=== PATIENT | female | born 1940 | race Caucasian/White ===

== ENCOUNTER 2017-05-06 07:49 | Emergency (ER) | payer MEDICARE, OTHER ==
[~2017-05-06] VITALS: Ht 170.2 cm; Wt 79.5 kg
[2017-05-06 07:49] VITALS: BP 120/63; PULSE 65; RESP 22; O2SAT 100
[2017-05-06] MEDS ORDERED: HYDR25TA4 PO (08:11)
[2017-05-06] MEDS ORDERED: MELO-259 PO (08:11)
[2017-05-06 08:39] LABS: BASOPHILS % (AUTO) 0.3 % (0-3); EOSINOPHILS % (AUTO) 0.3 % (0-5); MONOCYTES % (AUTO) 8.6 % (4-12); Mean Corpuscular Hemoglobin 23.5 pg (27.0-35.0); Mean Corpuscular Volume 74.1 fL (81-100); NEUTROPHILS % (AUTO) 81.1 % (40-74); Platelet Count 202 bil/L (150-400)
--- NOTE | 2017-05-06 08:41 | ED.REPORT ---
HPI-NVD Date of Service May 06, 2017 ED Provider: Conrad Carbajal MD History of Present Illness: OCC Pt is a 76 year old female with a history of arthritis, suspected diverticulitis and HTN who presents to the ED via EMS complaining of constipation onset 2 days ago. She c/o associated intermittent cramping abdominal pain, dizziness, nausea, shaking, weakness, malaise, and decreased appetite. She denies current abdominal pain and any other symptoms. Pt reports that she felt constipated 2 days ago, prompting her to consume prunes and milk of magnesia with mild relief. The pt reports that she took 3 tabs of Dulcolax at 03:00, resulting in a "large bowel movement" at 05:00 followed by her dizziness, nausea, shaking, and weakness. Nursing Notes Stated Complaint: DIARRHEA Chief Complaint: Female Abdominal Pain Nursing Notes Reviewed: Yes (StockLayouts reconciled) Allergies: Coded Allergies: Penicillins (Verified Allergy, Severe, 07/29/09) morphine (Verified Allergy, Severe, 07/29/09) Scheduled Ciprofloxacin (Cipro) 500 Mg Tablet 500 MG PO BID Hydrochlorothiazide (Hydrochlorothiazide) 25 Mg Tablet 25 MG PO DAILY Lactobacillus Acidophilus (Probiotic) 1 Each Capsule 1 EACH PO DAILY Meloxicam (Meloxicam) 7.5 Mg Tablet 7.5 MG PO DAILY Metronidazole (Metronidazole) 500 Mg Tablet 500 MG PO TID Scheduled PRN Hydrocodone-Acetaminophen 5-325 mg (Hydrocodone-Acetaminophen 5-325 mg) 1 Each Tablet 0.5-1 TABLET PO Q4H PRN PRN For Pain General Time Seen by MD: 08:37 Chief Complaint Other (Constipation) Hx Obtained From: Patient, EMS Arrived By: Ambulance Onset Occurred: 2 days ago Symptom Duration: Since onset Location: : Epigastric Quality: Cramping, Painful Radiation: : Does not radiate Severity: Current: Moderate Severity: Maximum: Moderate Recent Healthcare: No recent doctor visit, No recent hospitalization Similar Sx Previous: No Past Medical History Past Medical History Arthritis Suspected diverticulitis Reports: Hypertension Past Surgical History Right total hip replacement Reports: Cholecystectomy, Hysterectomy, Tonsillectomy Social History Alcohol Use: Denies alcohol use Drug Use: Denies drug use Other Social History: Good social support Ambulatory Status Independent Review of Systems Decreased appetite Constitutional: Reports: Malaise, Denies: Fever GI: Reports: Abdominal pain (cramping and painful), Constipation, Nausea Neurologic: Reports: Dizziness, Shaking, Weakness Complete sys rev & neg: except as marked. Physical Exam Initial Vital Signs Vital Signs (First) Date Time Temp Pulse Resp B/P Pulse Ox O2 Delivery O2 Flow Rate FiO2 05/06/17 07:49 36.7 65 22 120/63 100 Room Air Initial VS: Reviewed, Vital signs abnormal (orthotstatic for EMS) Head / Eyes: Atraumatic, Normocephalic Neck: Supple, Full range of motion Respiratory: Breath sounds normal, Clear to auscultation, No respiratory distress Cardiovascular: Regular rate & rhythm, Heart sounds normal, Intact distal pulses Extremities: Vascular intact, Neuro intact Skin: Warm, Dry, No cyanosis Neurologic: Alert, Oriented, Nonfocal Psychiatric: Mood/affect normal, Behavior normal General/Constitutional: Awake, Alert, Not toxic appearing Appears fatigued. Abdomen: Atraumatic, Soft, No guarding, No rebound Tenderness/Guarding/Rebound: Positive: Tender LLQ... (Moderate), Tender RLQ... (Mild) Interpretation & Diagnostics CT ABDOMEN AND PELVIS: IMPRESSION: 1. Sigmoid diverticulosis. There is mild thickening in the sigmoid colon suggesting mild diverticulitis. 2. There is a small hiatal hernia. There is mild eccentric thickening at the gastroesophageal junction. Double contrast esophagram or upper endoscopy suggested for further evaluation. 3. Moderate L3 compression fracture of indeterminate chronicity. Dictated by: Andrew Silva M.D. on 05/06/2017 at 11:59 Lab Results Interpretation Result Diagram: 05/06/17 0832 05/06/17 0832 Test 05/06/17 08:32 05/06/17 10:43 White Blood Count 7.7th/mm3 (3.8-10.1) Red Blood Count 4.98mil/mm3 (3.90-5.20) Hemoglobin 11.7g/dL (12.0-15.6) Hematocrit 36.9% (35.0-46.0) Mean Corpuscular Volume 74.1fL (81-100) Mean Corpuscular Hemoglobin 23.5pg (27.0-35.0) Mean Corpuscular Hemoglobin Concent 31.7% (32.0-37.0) Red Cell Distribution Width 15.3% (12.3-15.4) Platelet Count 202bil/L (150-400) Neutrophils (%) (Auto) 81.1% (40-74) Lymphocytes (%) (Auto) 9.6% (14-46) Monocytes (%) (Auto) 8.6% (4-12) Eosinophils (%) (Auto) 0.3% (0-5) Basophils (%) (Auto) 0.3% (0-3) Sodium Level 139mEq/L (134-144) Potassium Level 3.4mEq/L (3.5-5.2) Chloride Level 98mEq/L (97-108) Carbon Dioxide Level 25mmol/L (18-29) Blood Urea Nitrogen 15mg/dL (8-27) Creatinine 0.72mg/dL (0.57-1.00) Estimat Glomerular Filtration Rate 113mL/min (>59) Glucose Level 123mg/dL (60-99) Calcium Level 9.1mg/dL (8.5-10.1) Magnesium Level 2.2mg/dL (1.6-2.6) Total Bilirubin 1.2mg/dL (0.0-1.2) Aspartate Amino Transf (AST/SGOT) 23U/L (0-50) Alanine Aminotransferase (ALT/SGPT) 17U/L (0-32) Alkaline Phosphatase 69U/L (25-165) Troponin T 0.010ug/L (0.0-0.011) Total Protein 6.2g/dL (6.4-8.4) Albumin 3.6g/dL (3.4-5.0) Lipase 27U/L (13-60) Hold Peguero Top Tube Received (Received) Urine Color Yellow (YELLOW) Urine Appearance Clear (CLEAR,HAZY) Urine pH 8.0 (5.0-8.0) Urine Specific [place] 1.010 (1.003-1.035) Urine Protein Negativemg/dL (NEG,TRACE) Urine Glucose (UA) Negativemg/dL (NEGATIVE) Urine Ketones 15mg/dL (NEGATIVE) Urine Occult Blood Negative (NEGATIVE) Urine Nitrite Negative (NEGATIVE) Urine Bilirubin Negative (NEGATIVE) Urine Urobilinogen Normalmg/dL (NORMAL) Urine Leukocyte Esterase Negative (NEGATIVE) Urine RBC 0-2/hpf (0-2) Urine WBC 0-5/hpf (0-5) Urine Epithelial Cells Occasional/hpf (NONE-MOD) Urine Crystals None seen (NONE SEEN) Urine Bacteria None/hpf (NONE-FEW) Urine Hyaline Casts None/lpf (NONE) Urine Granular Casts None seen (NONE SEEN) Urine Waxy Casts None seen (NONE SEEN) Urine Red Blood Cell Casts None seen (NONE SEEN) Urine White Blood Cell Casts None seen (NONE SEEN) Urine Mucus None seen (None Seen) Urine Trichomonas None seen (NONE SEEN) Urine Yeast None (NONE SEEN) Urinalysis Comment None Urine Culture Reflexed Not indicated Lab Results Interpretation: CBC nl CMP nl TRoponin neg ECG Interpretation ECG Interpretation: Sinus rhythm with a rate of 65 Time: 08:28 Interpreted by: ED physician Re-Eval/Medical Decision Med Decision/Clinical Course This is a 76-year-old female presents with several days of left lower quadrant abdominal discomfort, she initially thought it might be due to constipation and took some allergens last night, then symptoms worsened at 3:00 the morning she did have loose stool, but continued to have ongoing abdominal discomfort and felt terrible so came to the emergency department. She declines pain medicine. On exam she has some left lower quadrant tenderness without guarding in the trace right-sided tenderness as well. She is afebrile and overall nontoxic. When workup and CT that was suggestive of early diverticulitis. Labs were otherwise normal. She improved over several hours of IV fluid. She is couple discharged home on antibiotics. Given her penicillin allergy combination of a fluoroquinolone and Flagyl were recommended. The patient is being discharged in improved condition. Return precautions reviewed with patient and daughter. Source of Hx: Old records, EMS Re-Evaluation/Progress #1: Time of Eval: 13:17 Re-Evaluation/Progress Note: Pt rechecked. Informed pt of CT results and plan for treatment. All questions addressed. Re-Evaluation/Progress #2: Time of Eval: 13:31 Re-Evaluation/Progress Note: Pt rechecked. Informed pt of plan for discharge. Pt understands and agrees with plan for discharge. F/U instructions and RTER warnings given. All questions addressed. Differential Diagnosis: Negative: Acute gastroenteritis, C. diff colitis, Crohn 's disease, Drug overdose, Drug toxicity, Drug-med reaction, Pancreatitis, Peptic ulcer disease, Ulcerative colitis Counseled Regarding: Diagnosis, Lab results, Need for follow-up, When/why to return to ED Discharge & Departure Impression: Primary Impression: Sigmoid diverticulitis Disposition: Home Discharge Condition All VS Reviewed: Yes Condition: Stable Additional Instructions: 1. Your pictures indicate you have mild diverticulitis (an infection of a section of intestine) 2. This is treated with a combination of two antibiotics for 10 days. Take ciprofloxacin 500mg twice a day (first dose tomorrow) for 9 days to complete a 10 day course (you received an initial dose that lasts 24 hours to start here in the ED)). Additionally take the antibiotic metronidazole 500mg three times a day, first dose this evening - and then start 3 times a day tomorrow. Do not drink any alcohol while taking (causes nausea) 3. IF needed for pain take hydrocodone/APAP 5/325 1/2 tab - 1 tab up to every 6 hours for pain. Note: This medication does contain a narcotic and causes some dizziness and drowsiness. No driving for at least 4 hours after taking 4. Symptoms are expected to be clinically improving after 2-3 days of antibiotics is complete the entire course of antibiotics to prevent recurrence however. 5. If Symptoms are not improving, or if you have new or worsening symptoms or uncontrolled pain or symptoms-return directly to the emergency department. 6. We also recommended he take a probiotic daily while you are on the antibiotic, and for another 2 weeks after finishing-this replaces the normal help effect. The intestine and are also killed by the antibiotic incidentally. 7. Call to schedule follow-up recheck with your regular doctor. Referrals: Jimmy Ledesma DO (PCP) Marvin Attestation Portions of this note were transcribed by Rosanna Nichols. I, Dr. Carbajal personally performed the history, physical exam and medical decision-making; I reviewed and confirmed the accuracy of the information in the transcribed note. Signed by: Mavrin Gray, 05/06/17. copies to: Jimmy Ledesma Matthew F MD May 06, 2017 08:41 Rosanna Martinez May 06, 2017 08:55
[2017-05-06] MEDS ORDERED: 0.9% Sodium Chloride 1,000 ML IV ONE ×2 (08:55→11:25)
[2017-05-06 09:07] LABS: TROPONIN T 0.01 ug/L (0.0-0.011)
[2017-05-06 09:18] LABS: Magnesium 2.2 mg/dL (1.6-2.6)
[2017-05-06 10:00] VITALS: BP 126/62; PULSE 68; RESP 17; O2SAT 98
[2017-05-06 10:19] VITALS: BP 113/78; PULSE 64; O2SAT 100
[2017-05-06 10:21] VITALS: BP 134/78; PULSE 82
[2017-05-06 11:14] LABS: APPEARANCE,URINE CLEAR (CLEAR,HAZY); COLOR,URINE YELLOW (YELLOW); OCCULT BLOOD,URINE NEGATIVE (NEGATIVE); UROBILINOGEN,URINE NORMAL (NORMAL)
--- NOTE | 2017-05-06 13:09 | DRSVH ---
PROCEDURE: CT ABDOMEN AND PELVIS WITH CONTRAST ([id number]) INDICATIONS: Abd pain LLQ + RLQ tender TECHNIQUE: After the administration of intravenous contrast, 5 mm thick sections acquired from the diaphragm to the symphysis. 5 mm coronal and sagittal reformats were acquired. For radiation dose reduction, the following was used: automated exposure control, adjustment of mA and/or kV according to patient siz e. COMPARISON: None. FINDINGS: Image quality: Excellent. ABDOMEN: Lung bases: Lung bases are clear. Heart size is normal. There is a small hiatal hernia. There is e ccentric thickening at the GE junction. Solid organs: Liver and spleen are normal in size and enhancement. Gallbladder is surgically absent . Biliary system is non dilated. Pancreas enhances normally. No adrenal nodules. Kidneys demonstr ate normal size and enhancement, without hydronephrosis. Peritoneum and bowel: Bowel loops demonstrate normal caliber. There is fluid within the proximal co ean, which is nonspecific. Numerous sigmoid diverticula are present. Mild wall thickening in distal s igmoid colon. No free fluid or air. Nodes and vessels: No retroperitoneal or mesenteric adenopathy by size criteria. Aorta and inferior vena cava are normal in size. Miscellaneous: No ventral hernias. PELVIS: Genitourinary: Bladder wall thickness is normal. Miscellaneous: No inguinal adenopathy. Fat-containing inguinal hernias noted. Bones: No suspicious bony lesions. There is moderate vertebral body compression fracture at L3, inde terminate in chronicity. There is a large Schmorl's node in inferior endplate of L1. Degenerative di sc and facet disease in lumbar spine. IMPRESSION: 1. Sigmoid diverticulosis. There is mild thickening in the sigmoid colon suggesting mild diverticulit is. 2. There is a small hiatal hernia. There is mild eccentric thickening at the gastroesophageal junctio n. Double contrast esophagram or upper endoscopy suggested for further evaluation. 3. Moderate L3 compression fracture of indeterminate chronicity. Dictated by: Andrew Silva M.D. on 05/06/2017 at 11:59 Approved by: Andrew Silva M.D. on 05/06/2017 at 12:08
[2017-05-06] MEDS ORDERED: metroNIDAZOLE Inj 500 MG in IV Premix 1 EACH IV ONE (13:20)
[2017-05-06] MEDS ORDERED: levoFLOXacin 750 mg Tablet PO ONE (13:20)
[2017-05-06] MEDS ORDERED: CIPR-231 PO (13:27)
[2017-05-06] MEDS ORDERED: HYDR-4003 PO (13:27)
[2017-05-06] MEDS ORDERED: LACT1CAP65 PO (13:27)
[2017-05-06] MEDS ORDERED: METR500T19 PO (13:27)
[2017-05-06 13:29] VITALS: BP 125/63; PULSE 67; RESP 17; O2SAT 99
[2017-05-06 15:07] VITALS: BP 113/51; PULSE 69; RESP 14; O2SAT 100
== END 2017-05-06 15:05 | disposition home or self-care (01) ==
LOC: SED 07:49
DX: K57.32 Diverticulitis of large intestine without perforation or abscess without bleeding (principal); I10 Essential (primary) hypertension; M19.90 Unspecified osteoarthritis, unspecified site; Z90.49 Acquired absence of other specified parts of digestive tract; Z90.710 Acquired absence of both cervix and uterus; Z88.0 Allergy status to penicillin; Z88.5 Allergy status to narcotic agent
CPT/HCPCS: 36415; 74177; 80053; 81000; 83690; 83735; 84484; 85025; 93005; 96361; 96365; 99285; J3490; J7030; Q9967